=== PATIENT | female | born 1990 | race American Indian/Alaskan Native ===

== ENCOUNTER 2016-11-13 20:10 | Emergency (ER) | payer MEDICAID ==
[2016-11-13 20:56] VITALS: BMI 51.0
--- NOTE | 2016-11-13 22:47 | OBHP ---
Datetime: 11/13/2016 22:34 IP Admit Plan: Observation/Evaluation Admit Comment, IP Provider: 26yo edc 11/26 @ 31.5wks was referred to the [facility] ED department for evaluation of bilateral lower extremity edema with venous Dopplers to r/o dvt. Patient denies con tractions spontaneous ruptured membranes vaginal bleeding. He states she has uterine cramping for ab out 3 weeks no change. 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 Impression bilate ral lower extremity edema. Impression: DVT extreme morbid obesity 31.5 week Plan: To ED for evaluation of lower extremities fore venous Dopplers. Extremities - PN: Abnormal Abdomen - PN: Normal Lungs - PN: Normal Heart - PN: Normal Neurologic - PN: Normal HEENT - PN: Normal General - PN: Normal FHR - Baseline A Provider: 150 Contraction Comments Provider: no EGA AdmitDate IP: 31.5 Vital Signs Provider: Within Normal Limits IP Chief Complaint: Other NICHD Variability Prov Fetus A: Moderate 6-25bpm NICHD Accel Fetus A IP Provider: 15X15 FHR Category Provider Fetus A: Category I NICHD Decel Fetus A IP Provider: None Dilatation, Provider: 0 Effacement, Provider: 0 Station, Provider: 0 Genitourinary Exam: Normal
[2016-11-13 23:57] VITALS: BP 133/75; PULSE 104; RESP 18; TEMP 98.9; O2SAT 100
--- NOTE | 2016-11-14 01:12 | ED PDOC ---
Lower Extremity Pain/Injury Time Seen by Provider: 11/14/16 00:00 Chief Complaint (Nursing): Lower Extremity Problem/Injury History Per: Patient History/Exam Limitations: no limitations Onset/Duration Of Symptoms: Days Current Symptoms Are (Timing): Still Present Severity: Moderate Additional History Per: Patient Additional Complaint(s): 26 y/o 32 weeks female here on referral of OB for evaluation of BLE swelling and pain for the last few days. She denies any chest pain, shortness of breath, or history of PE. Patient was cleared by OB and sent here for evaluation. vital stable. pt sleeping comfortably without distress Past Medical History Vital Signs: Last Vital Signs Temp 98.9 F 11/13/16 23:54 Pulse 104 H 11/13/16 23:54 Resp 18 11/13/16 23:54 BP 133/75 11/13/16 23:54 Pulse Ox 100 11/13/16 23:54 - Medical History PMH: No Chronic Diseases - Surgical History Surgical History: No Surg Hx - Family History Family History: States: No Known Family Hx - Social History Current smoker - smoking cessation education provided: No Ex-Smoker (has not smoked in the last 12 months): No Alcohol: None Drugs: Denies - Allergies Allergies/Adverse Reactions: Allergies Allergy/AdvReac Type Severity Reaction Status Date / Time No Known Allergies Allergy Verified 11/13/16 20:56 Review of Systems ROS Statement: Except As Marked, All Systems Reviewed And Found Negative Musculoskeletal: Positive for: Leg Pain Physical Exam - Reviewed Nursing Documentation Reviewed: Yes Vital Signs Reviewed: Yes - Physical Exam Appears: Positive for: Well, Non-toxic, No Acute Distress Head Exam: Positive for: ATRAUMATIC, NORMAL INSPECTION, NORMOCEPHALIC Skin: Positive for: Normal Color, Warm, DRY Neck: Positive for: Normal, Painless ROM Cardiovascular/Chest: Positive for: Regular Rate, Rhythm Respiratory: Positive for: CNT, Normal Breath Sounds Gastrointestinal/Abdominal: Positive for: Normal Exam, Bowel Sounds, Soft Back: Positive for: Normal Inspection Extremity: Positive for: Normal ROM, Pedal Edema (knee down to feet bilateral. neurovascular intact.) Neurologic/Psych: Positive for: Alert, Oriented - ECG O2 Sat by Pulse Oximetry: 100 Medical Decision Making Medical Decision Making: Impression: BLE edema and pain Plan: - US Duplex r/o DVT [facility] Final Radiology Report Call: [phone] assistance Online chat: [email or web address] Patient Name: JAKE BLANTON (Age): 1990 26 Gender: F Date of Exam: 11/14/2016 Referring Physician: Deirdre Jauregui # of Images: 42 Ordered As: US DUPLEX LOWER EXTRM VEIN BILAT CONFIDENTIALITY STATEMENT This report is intended only for use by the referring physician, and only in accordance with law. If you received this in error, call [phone]. Page 1 of 1 EXAM: US Duplex Bilateral Lower Extremity Veins CLINICAL HISTORY: 26 years old, female; Signs and symptoms; Swelling of limb; Lower extremity, bilateral; Additional info: Bilateral leg swelling, TECHNIQUE: Real-time ultrasound scan of the veins of the bilateral lower extremities with color Doppler flow, spectral waveform analysis and compression. COMPARISON: No relevant prior studies available. FINDINGS: Right deep veins: Unremarkable. No DVT in the right common femoral, femoral, proximal deep femoral or popliteal veins. The veins demonstrate normal color flow, are normally compressible, with normal phasic flow and/or augmentation response. Right superficial veins: Unremarkable. No thrombus in the visualized right great saphenous vein. Left deep veins: Unremarkable. No DVT in the left common femoral, femoral, proximal deep femoral or popliteal veins. The veins demonstrate normal color flow, are normally compressible, with normal phasic flow and/or augmentation response. Left superficial veins: Unremarkable. No thrombus in the visualized left great saphenous vein. Soft tissues: No acute findings. No popliteal cyst. IMPRESSION: Normal bilateral lower extremity duplex venous ultrasound. Thank you for allowing us to participate in the care of your patient. Dictated and Authenticated by: Costa Shukla MD 11/14/2016 2:39 AM Eastern Time ([place] & [place]) Scribe Attestation: Documented by Carolina Monteiro, acting as a scribe for Deirdre Jauregui MD. Provider Scribe Attestation: All medical record entries made by the Scribe were at my direction and personally dictated by me. I have reviewed the chart and agree that the record accurately reflects my personal performance of the history, physical exam, medical decision making, and the department course for this patient. I have also personally directed, reviewed, and agree with the discharge instructions and disposition. 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
--- NOTE | 2016-11-14 02:39 | US ---
EXAM: US Duplex Bilateral Lower Extremity Veins CLINICAL HISTORY: 26 years old, female; Signs and symptoms; Swelling of limb; Lower extremity, bilateral; Additional info: Bilateral leg swelling, TECHNIQUE: Real-time ultrasound scan of the veins of the bilateral lower extremities with color Doppler flow, spectral waveform analysis and compression. COMPARISON: No relevant prior studies available. FINDINGS: Right deep veins: Unremarkable. No DVT in the right common femoral, femoral, proximal deep femoral or popliteal veins. The veins demonstrate normal color flow, are normally compressible, with normal phasic flow and/or augmentation response. Right superficial veins: Unremarkable. No thrombus in the visualized right great saphenous vein. Left deep veins: Unremarkable. No DVT in the left common femoral, femoral, proximal deep femoral or popliteal veins. The veins demonstrate normal color flow, are normally compressible, with normal phasic flow and/or augmentation response. Left superficial veins: Unremarkable. No thrombus in the visualized left great saphenous vein. Soft tissues: No acute findings. No popliteal cyst. IMPRESSION: Normal bilateral lower extremity duplex venous ultrasound.
== END 2016-11-14 02:55 | disposition home or self-care (01) ==
LOC: H.ER 20:10 → H.EROB2 20:10 → H.ER 11-14 02:55
DX: O12.03 Gestational edema, third trimester (principal); Z3A.31 31 weeks gestation of pregnancy; O99.213 Obesity complicating pregnancy, third trimester

== ENCOUNTER 2016-12-11 18:25 | Emergency (ER) | payer MEDICAID ==
[2016-12-11 18:44] VITALS: BMI 51.3
[2016-12-11 21:35] LABS: BASO % 0.5 % (0.0-2.0); EOS % 0.3 % (0.0-4.0); HEMATOCRIT 36.6 % (34.0-47.0); LYMPH # 2.7 K/uL (1.0-4.3); LYMPH % 31.5 % (20.0-40.0); MEAN CELL VOLUME 87.9 fl (81.0-99.0); MEAN PLATELET VOLUME 9.6 fl (7.2-11.7); MONO # 0.8 K/uL (0.0-0.8); MONO % 8.9 % (0.0-10.0); NEUT % 58.8 % (50.0-75.0); NRBC % 0.1 % (0.0-0.0); RED CELL DISTRIBUTION WIDTH 14.5 % (11.5-14.5); WHITE BLOOD COUNT 8.6 K/uL (4.8-10.8)
[2016-12-11 21:47] LABS: URINE BACTERIA OCC (<OCC); URINE BILIRUBIN NEGATIVE (NEGATIVE); URINE BLOOD NEGATIVE (NEGATIVE); URINE COLOR YELLOW (YELLOW); URINE GLUCOSE (UA) NEG (Normal); URINE KETONE NEGATIVE (NEGATIVE); URINE LEUKOCYTE ESTERASE TRACE Leu/uL (Negative); URINE PROTEIN NEGATIVE (NEGATIVE); URINE UROBILINOGEN 0.2-1.0 mg/dL (0.2-1.0); WBC URINE 13 /hpf (0-5)
[2016-12-11 21:49] LABS: ALB/GLOB RATIO 1.1 (1.0-2.1); ALKALINE PHOSPHATASE 149 U/L (38-126); ALT/SGPT 26 U/L (9-52); AST/SGOT 26 U/L (14-36); BILIRUBIN,TOTAL 0.6 mg/dl (0.2-1.3); BLOOD UREA NITROGEN 4 mg/dl (7-17); CALCIUM 9.3 mg/dL (8.4-10.2); CARBON DIOXIDE 22 mmol/L (22-30); CHLORIDE 108 mmol/L (98-107); GFR AFRICAN-AMERICAN > 60; GLUCOSE,RANDOM 88 mg/dL (65-105); POTASSIUM 3.9 MMOL/L (3.6-5.0); SODIUM 139 mmol/l (132-148); TOTAL PROTEIN 6.8 G/DL (6.3-8.2); URIC ACID 6.6 mg/Dl (2.2-7.5)
[2016-12-11 21:53] LABS: RBC URINE 3 /hpf (0-3)
--- NOTE | 2016-12-11 23:53 | OBHP ---
Datetime: 12/11/2016 20:22 IP Adm Impression: , intrauterine IP Chief Complaint Other: Elevated BP in clinic IP Admit Plan: Observation/Evaluation Admit Comment, IP Provider: 26 y/o at 35.5wks gestation with SCARLETT 01/10 as per 8wk u/s presents to OBsed on the advisement of her OB for elevated BP 174/115 reported in her clinic visit today. She states that she has been having intermitted contractions since last that have been occurring with more frequency, currently q20min. As per the patient, she was seen a week ago in the ED for farnaz vated blood pressures and visual disturbances. Today, denies headache, visual disturbances, RUQ or ep igastric pain, urinary changes, vaginal bleeding, or loss of fluid. She reports moderate swelling in her extremities bilaterally that have worsened over the past week. Reports good movement. On RO S, pt mentions that she feels naseua. PNC: Gestational Diabetes on Glyburide. States sugars have been well controlled. Denies elevated B P during this . Remainder of PNC unremarkable as per patient. OBsHx: 1 delivered via C section at 34 weeks gestation (2009). Denies complicati ons including preeclampsia. 2SAB 1st trimester via D_C, and 3 TOP 1st trimester via D_C Medical Hx: Denies Surgical Hx: C section (2009) Social: Denies smoking, alcohol, or drug use RX Meds: Glyburide 2.5mg BID, PNV Triage Vitals: 116/65, HR 110, afebrile General: Comfortable, NAD Cardio: RRR, normal S1, S2, no murmurs Pulmonary: Clear to auscultation BL Abdomen: Obese, Gravid, NT Extremities: Moderate swelling BL, +3 pitting edema up to knees, tender to palpation, good pulses, Hoffmans negative, no calf tenderness FHR: 155-160, moderate variability, + accelerations, no decelerations Assessment: IUP at 35.5 wks gestation with episode of HTN in clinic. Currently normotensive. Plan: Monitor BP's, Continuous monitoring, F/U PIH labs and U/A The attending addendum: Patient seen and examined by me with Dr. Oscar. Agree with above assessment and plan O: CBC's CMP within normal limits UA negative for protein significant for positive RBCs repeat pelvic exam cl/th/high Impression: Normal BPs and no evidence of preeclampsia Hematuria Plan: Urine TRADITIONAL [place] Labor precautions follow up to the hospital with onset of labor Follow-up with as scheduled. Pelvic Type - PN: Adequate Extremities - PN: Normal Abdomen - PN: Normal Back - PN: Normal Breast - PN: Normal Lungs - PN: Normal Heart - PN: Normal Thyroid - PN: Normal Neurologic - PN: Normal HEENT - PN: Normal General - PN: Normal FHR - Baseline A Provider: 150 Contraction Comments Provider: occasional- not appreciated by pt EGA AdmitDate IP: 35.5 Vital Signs Provider: Reviewed IP Chief Complaint: Other NICHD Variability Prov Fetus A: Moderate 6-25bpm NICHD Accel Fetus A IP Provider: 15X15 FHR Category Provider Fetus A: Category I Dilatation, Provider: 0 Effacement, Provider: 0 Station, Provider: -4 Genitourinary Exam: Normal DTRs - PN: Normal (Annotations: Data stored by CPN on behalf of user)
[2016-12-12 10:17] VITALS: BP 117/72; PULSE 95; RESP 18; TEMP 98.3; O2SAT 100
== END 2016-12-11 23:55 | disposition home or self-care (01) ==
LOC: H.EROB2 18:25 → H.EROB 18:55 → H.EROB2 23:55
DX: O13.3 Gestational [pregnancy-induced] hypertension without significant proteinuria, third trimester (principal); Z3A.35 35 weeks gestation of pregnancy; Z87.59 Personal history of other complications of pregnancy, childbirth and the puerperium

== ENCOUNTER 2016-12-20 17:41 | Emergency (ER) | payer MEDICAID ==
--- NOTE | 2016-12-20 19:05 | OBHP ---
Datetime: 12/20/2016 18:59 IP Adm Impression: Term, intrauterine ; No Active Labor IP Admit Plan: Observation/Evaluation; Discharge home Admit Comment, IP Provider: The patient is a 26-year-old 7 para 1 estimated gestational age 37 weeks patient presents to labor and delivery stating she has floaters patient denies any eye pain and blurry vision and headache. Patient reports good movement no vaginal bleeding occasional ut erine contractions. Past medical history none Past surgical history previous delivery No known drug allergies Medications vitamins and glyburide Social history denies alcohol tobacco use Review of systems patient denies headache chest pain shortness of breath palpitations nausea vomit ing diarrhea dysuria heat or cold intolerance easy bruisability musculoskeletal or neurological compl aints Vital signs stable afebrile Physical exam see notes Intrauterine at 37 weeks Floaters patient to follow-up with ophthalmology Normotensive External monitor, observation, probable discharge home Pelvic Type - PN: Adequate Extremities - PN: Normal Abdomen - PN: Normal Back - PN: Normal Breast - PN: Not Done Lungs - PN: Normal Heart - PN: Normal Thyroid - PN: Normal Neurologic - PN: Normal HEENT - PN: Normal General - PN: Normal EGA AdmitDate IP: 37.0 Vital Signs Provider: Reviewed IP Chief Complaint: Other Genitourinary Exam: Normal DTRs - PN: Normal
[2016-12-21 01:39] VITALS: BP 127/89; PULSE 105; RESP 18; TEMP 98.2; O2SAT 99
== END 2016-12-20 21:37 | disposition home or self-care (01) ==
LOC: H.EROB2 17:41
DX: O26.93 Pregnancy related conditions, unspecified, third trimester (principal); H53.9 Unspecified visual disturbance; Z3A.37 37 weeks gestation of pregnancy

== ENCOUNTER 2016-12-27 12:44 | Inpatient (IN) | payer MEDICAID ==
[2016-12-27 13:24] VITALS: BMI 52.1
[2016-12-27] MEDS ORDERED: Oxycodone/Acetaminophen 5/325 mg Tab PO PRN ×5 (14:29→21:16)
[2016-12-27] MEDS: Lactated Ringer's 1,000 ML IV SCH ×2 (15:12→15:59)
[2016-12-27] MEDS ORDERED: Oxytocin 30 UNITS in Sodium Chloride 0.9% 500 ML IV ONE (16:10)
--- NOTE | 2016-12-27 16:17 | OBHP ---
Datetime: 12/27/2016 16:14 IP Adm Impression: Term, intrauterine ; No Active Labor; Intact Membranes IP Admit Plan: Admit to unit Admit Comment, IP Provider: The patient is a 26-year-old 7 para 1 estimated gestational age 38 weeks patient presents to labor and delivery and continued elevated blood pressure and PMDD's offi ce. Patient denies headache blurred vision chest pain shortness of breath. Patient reports good movement no leakage of fluid occasional uterine contractions. complicated by elevated bloo d pressure and gestational diabetes Past medical history none Past surgical history previous delivery No known drug allergies Medications vitamins and glyburide Social history denies alcohol tobacco use Review of systems patient denies headache chest pain shortness of breath palpitations nausea vomit ing diarrhea dysuria heat or cold intolerance easy bruisability musculoskeletal or neurological compl aints Vital signs stable afebrile Physical exam see notes Intrauterine at 38 weeks History of previous section Gestational diabetes and hypertension Plan of care discussed with PMDD patient to be admitted for repeat delivery Informed consent obtained we discussed risks benefits alternatives to surgery patient agrees to pl an of care. Patient to be admitted for postoperative management Pelvic Type - PN: Adequate Extremities - PN: Normal Abdomen - PN: Normal Back - PN: Normal Breast - PN: Not Done Lungs - PN: Normal Heart - PN: Normal Thyroid - PN: Normal Neurologic - PN: Normal HEENT - PN: Normal General - PN: Normal Presentation-Admit: Vertex FHR - Baseline A Provider: 156 Gestation - Est Wks by US: 38.0 EGA AdmitDate IP: 38.0 Vital Signs Provider: Reviewed IP Chief Complaint: Uterine contractions; Maternal discomfort; evaluation NICHD Variability Prov Fetus A: Moderate 6-25bpm NICHD Accel Fetus A IP Provider: 10X10 FHR Category Provider Fetus A: Category I NICHD Decel Fetus A IP Provider: None Genitourinary Exam: Normal DTRs - PN: Normal
[2016-12-27] MEDS ORDERED: Phenylephrine 10 mg/ml Inj ONE (16:59)
[2016-12-27 17:19] LABS: BASO % 0.6 % (0.0-2.0); EOS % 0.7 % (0.0-4.0); LYMPH # 2.4 K/uL (1.0-4.3); LYMPH % 35.6 % (20.0-40.0); MEAN CELL VOLUME 87.5 fl (81.0-99.0); MEAN CORPUSCULAR HEMOGLOBIN 28.7 pg (27.0-31.0); MEAN CORPUSCULAR HGB CONC 32.8 g/dL (33.0-37.0); MEAN PLATELET VOLUME 10.7 fl (7.2-11.7); MONO # 0.5 K/uL (0.0-0.8); MONO % 7.3 % (0.0-10.0); NEUT # 3.8 K/uL (1.8-7.0); NEUT % 55.8 % (50.0-75.0); NRBC % 0.1 % (0.0-0.0); RED CELL DISTRIBUTION WIDTH 14.7 % (11.5-14.5); WHITE BLOOD COUNT 6.9 K/uL (4.8-10.8)
[2016-12-27] MEDS ORDERED: Esmolol 100 mg/10ml Inj IV ONE (17:48)
[2016-12-27] MEDS ORDERED: DiphenhydrAMINE 50 mg/ml Inj IVP PRN ×2 (18:03→21:16)
[2016-12-27] MEDS ORDERED: Lactated Ringer's 1,000 ML IV SCH (22:15)
[2016-12-28 06:35] LABS: HEMATOCRIT 32.4 % (34.0-47.0); MEAN CELL VOLUME 85.8 fl (81.0-99.0); MEAN CORPUSCULAR HEMOGLOBIN 29.7 pg (27.0-31.0); MEAN CORPUSCULAR HGB CONC 34.6 g/dL (33.0-37.0); RED CELL DISTRIBUTION WIDTH 14.6 % (11.5-14.5); WHITE BLOOD COUNT 8.3 K/uL (4.8-10.8)
[2016-12-28] MEDS ORDERED: Oxycodone/Acetaminophen 5/325 mg Tab PO PRN (08:32)
--- NOTE | 2016-12-28 08:57 | OBPPN ---
Datetime: 12/28/2016 08:49 PP Pain Prov: Within normal limits PP Nausea Prov: Denies PP Flatus Prov: Yes PP BM Prov: No PP Abdomen/Uterus Prov: Normal PP Lochia Prov: Normal PP Extremities Prov: Normal PP C/S Incision Prov: Normal PP Progress Prov: Normal PP Comments Phys Exam Prov: Incisionn w/ clean dry dressing PP Impression Prov: Normal progression PP Plan Prov: Continue present management PP Progress Note Prov: POD 1 s/p repeat c/s, doing well, plans to breast feed Advance diet to regular OOB today Vital Signs Provider PP: Reviewed
[2016-12-28] MEDS: Oxycodone/Acetaminophen 5/325 mg Tab PO PRN ×2 (14:37→20:25)
[2016-12-29] MEDS: Oxycodone/Acetaminophen 5/325 mg Tab PO PRN ×5 (01:25→20:32)
--- NOTE | 2016-12-29 10:14 | OBDS ---
DELIVERY PERSONNEL Delivery Doctor: Yuli Sanz MD Scrub Nurse: Pavithra Daniels OBT Cigarette Seller: Shaun Ayoub RN Anesthesiologist: Lamar Acevedo MD MATERNAL INFORMATION Medications in Delivery: Pitocin 30u/500LR Estimated Blood Loss (ml): 800 Placenta Cultured: No Provider Comments: Repeat low transverse section via Pfannenstiel incision. Patient deliver ed viable with Apgars of 9 and 9 at one and 5 minutes respectively. Normal uterus, normal ovar ies bilaterally. Estimated blood loss 800 mL Fluids 1200 mL lactated Ringer's Urine output 100 mL of clearing the procedure No Complications LABOR SUMMARY EDC: 01/10/2017 00:00 No. Babies in Womb: 1 LABOR INFORMATION Group B Beta Strep: Negative MEMBRANES Amniotic Fluid Amount: None STAGES OF LABOR Stage 3 hrs: 0 Stage 3 min: 1 CSECTION DELIVERY Primary Indication: Repeat Elective Secondary Indication: Other CSection Urgency: Elective CSection Incidence: Repeat Labor: No Labor CSection Incision: Lower Uterine Transverse BABY A INFORMATION Infant Delivery Date/Time: 12/27/2016 17:57 Method of Delivery: Born in Route : No : N/A Forceps: N/A Vacuum Extraction: N/A Shoulder Dystocia : No SHOULDER DYSTOCIA BABY A Delivery Date/Time: 12/27/2016 17:57 PRESENTATION/POSITION BABY A Presentation: Cephalic PLACENTA INFORMATION BABY A Placenta Delivery Time : 12/27/2016 17:58 Placenta Method of Delivery: Manual Removal Placenta Status: Delivered SCORES BABY A Heart Rate 1 min: >100 bpm Resp Effort 1 min: Good Cry Reflex Irritability 1 min: Cough or Sneeze or Pulls Away Muscle Tone 1 min: Active Motion Color 1 min: Body [place], Extremities Blue SCORE 1 MIN: 9 Heart Rate 5 min: >100 bpm Resp Effort 5 min: Good Cry Reflex Irritability 5 min: Cough or Sneeze or Pulls Away Muscle Tone 5 min: Active Motion Color 5 min: Body [place], Extremities Blue SCORE 5 MIN: 9 INFORMATION BABY A Gestational Age at Delivery: 38.0 Gestational Status: Term Outcome : Liveborn Infant Condition : Stable Sex: Male WEIGHT/LENGTH BABY A Infant Birthweight (gms): 3070 Infant Weight (lb): 6 Weight (oz): 12 CORD INFORMATION BABY A No. Cord Vessels: 3 Cord Blood Taken: Yes ASSESSMENT BABY A Complications: None Physical Findings at Delivery: Within Normal Limits Infant Respirations: Appears Normal Infant Care By: Transferred To: Nursery
--- NOTE | 2016-12-29 11:58 | OP ---
PROCEDURE DATE: 12/27/2016 PREOPERATIVE DIAGNOSES: Elective repeat section at 38 weeks' gestational age, gestational hypertension with worsening status, gestational diabetes. POSTOPERATIVE DIAGNOSES: Elective repeat section at 38 weeks' gestational age, gestational hypertension with worsening status, gestational diabetes. PROCEDURE: Repeat low flap transverse section via Pfannenstiel incision. OPERATIVE FINDINGS: Viable with Apgars of 9 and 9 at 1 and 5 minutes respectively, normal uterus, normal tubes and ovaries bilaterally. ESTIMATED BLOOD LOSS: 800 mL FLUIDS: 1200 mL of lactated Ringer's. URINE OUTPUT: 100 mL of clear urine at the end of the procedure. COMPLICATIONS: No complications. SURGEON: Flavio Sanz MD KEY SANDER: Ben Edgar MD. Dr. Edgar was present from the beginning of the procedure to the end of procedure. Dr. Edgar was integral in exposing the surgical field, controlling intraoperative bleeding, and manual delivery of the . ANESTHESIA ADMINISTERED BY: Ruby Acevedo MD TYPE OF ANESTHESIA: Spinal. DESCRIPTION OF PROCEDURE: The patient was taken to the operating room where spinal anesthesia was found to be adequate. The patient was prepped and draped in a normal sterile fashion in the dorsal supine position with a leftward tilt. A Pfannenstiel skin incision was made with a scalpel. This was carried down through to the underlying layer of fascia with the scalpel. Midline defect was made in the fascial layer with a scalpel. The fascial incision was then extended bilaterally with curved Doty scissors. The fascial layer was from the underlying rectus muscles both bluntly and sharply with curved Doty scissors. The rectus muscles were at the midline. The peritoneum was then identified, tented up with Katherine clamps x2, and entered sharply with Metzenbaum scissors. This peritoneal incision was then extended superiorly and inferiorly with good visualization of the urinary bladder. Bladder blade was inserted into the abdomen. The vesicouterine peritoneum was then identified, tented up with Katherine clamps x2, entered sharply with Metzenbaum scissors. This peritoneal incision was then extended bilaterally with Metzenbaum scissors. The bladder flap was created digitally. The [place] retractors were placed over the urinary bladder. The uterus was incised with a scalpel. The uterine incision was extended bilaterally bluntly. The infant's head was delivered atraumatically. Nose and mouth were suctioned with bulb suction. The remainder of the was delivered without complication. The cord was clamped and cut. The infant was handed off to waiting pediatricians. Cord blood was collected. The placenta was removed manually. The uterus was cleared of all clots and debris. The uterine incision was repaired with 0 Vicryl in a running, locked fashion. Reinspection of the uterine incision proved excellent hemostasis. The abdomen and pelvis were irrigated with a copious amounts of warm normal saline. All instruments were removed from the patient. The peritoneal layer was closed with a running stitch of 2-0 chromic. The rectus muscles were reapproximated with a running stitch of 2-0 chromic. The fascial layer was closed with a running stitch of 0 Vicryl. Subcutaneous tissue was closed with a running stitch of 3-0 plain. The skin was closed with a subcutaneous stitch of 3-0 Vicryl. The patient tolerated the procedure well. All sponge count, lap count, and needle counts were correct x2. The patient was given 3 g of Ancef just prior to beginning of the procedure. There were no complications. The patient was taken to the recovery room awake and in stable condition. Flavio Sanz MD
--- NOTE | 2016-12-29 12:02 | OBPPN ---
Datetime: 12/29/2016 11:44 PP Pain Prov: Within normal limits PP Nausea Prov: Denies PP Flatus Prov: Yes PP BM Prov: Yes PP Breasts Prov: Normal PP Heart Prov: Normal PP Lungs Prov: Normal PP Abdomen/Uterus Prov: Normal PP Lochia Prov: Normal PP Vulva/Perineum Prov: Normal PP CVA Tenderness Prov: Normal PP Extremities Prov: Normal PP Comments Phys Exam Prov: Incision clean, dry, intact No deep Tenderness bilaterally PP Impression Prov: Normal progression PP Plan Prov: Continue present management PP Progress Note Prov: Postop day #2 status post repeat [id number] recovering well Operative bed, ambulate Regular diet Pain control Anticipate discharge home tomorrow IP PP Procedures: None Vital Signs Provider PP: Reviewed
[2016-12-30] MEDS: Oxycodone/Acetaminophen 5/325 mg Tab PO PRN ×2 (03:29→09:24)
--- NOTE | 2016-12-30 15:52 | OBPPN ---
Datetime: 12/30/2016 11:30 PP Pain Prov: Within normal limits PP Nausea Prov: Denies PP Flatus Prov: Yes PP BM Prov: Yes PP Breasts Prov: Normal PP Heart Prov: Normal PP Lungs Prov: Normal PP Abdomen/Uterus Prov: Normal PP Lochia Prov: Normal PP Vulva/Perineum Prov: Normal PP CVA Tenderness Prov: Normal PP Extremities Prov: Normal PP C/S Incision Prov: Normal PP Progress Prov: Normal PP Impression Prov: Normal progression PP Plan Prov: Discharge PP Progress Note Prov: POD 3 Dischasrge home follow up next weke as scheduled Vital Signs Provider PP: Reviewed; Within Normal Limits
--- NOTE | 2016-12-30 15:55 | OBDCSUM ---
Datetime: 12/30/2016 11:50 Discharged to, Provider: Home Follow up at, Provider: Doris Disch Instr Activity: Normal activity; May be up to bathroom; May be up for meals; May Shower Discharge Diagnosis, Provider: Term Delivered Follow up in weeks, Provider: 1-2 weeks Disch Activity Restrictions: No sexual activity; Nothing in vagina - [place], tampons, douche
[2016-12-30 19:29] VITALS: BP 128/73; PULSE 94; RESP 20; TEMP 98.9; O2SAT 99
== END 2016-12-30 14:24 | disposition home or self-care (01) | DRG 371 ==
LOC: H.EROB2 12:44 → H.L&D 13:08 → H.EROB2 13:24 → H.OB/GYN 21:58
PROVIDERS: ADMIT Obstetrics & Gynecology; ATTEND Obstetrics & Gynecology
PROC: 10D00Z1 Extraction of Products of Conception, Low, Open Approach (ICD-10-PCS; principal; 2016-12-27)
PROC: 4A1HXCZ Monitoring of Products of Conception, Cardiac Rate, External Approach (ICD-10-PCS; 2016-12-27)
PROC: 3E0234Z Introduction of Serum, Toxoid and Vaccine into Muscle, Percutaneous Approach (ICD-10-PCS; 2016-12-28)
DX: O34.211 Maternal care for low transverse scar from previous cesarean delivery (principal); O13.4 Gestational [pregnancy-induced] hypertension without significant proteinuria, complicating childbirth; O24.429 Gestational diabetes mellitus in childbirth, unspecified control; O36.0930 Maternal care for other rhesus isoimmunization, third trimester, not applicable or unspecified; Z37.0 Single live birth; Z3A.38 38 weeks gestation of pregnancy